=== PATIENT | female | born 1985 | race Caucasian/White ===

== ENCOUNTER 2016-09-01 20:34 | Emergency (ER) | payer OTHER ==
[2016-09-01 20:46] VITALS: TEMP 97.5
[2016-09-01] MEDS ORDERED: SODIUM CHLORIDE 0.9% 1,000 ML IV STA (21:07)
--- NOTE | 2016-09-01 21:21 | ED ---
General Adult HPI - General Chief complaint: Abdominal Pain Stated complaint: Abd pain Time Seen by Provider: 09/01/16 20:55 Source: patient, RN notes reviewed Mode of arrival: ambulatory Limitations: no limitations - History of Present Illness Initial comments: 30-year-old female presented emergency department with multiple complaints. Patient states she's had right shoulder pain for last few weeks after she fell down 3-4 stairs. Patient states she also had right shoulder pain. She states she has full range of motion but occasionally she has increased pain and states it feels like it catches. Patient denies any paresthesias. Denies any neck or head pain. Patient states she has chronic neck and back pain and was she was seen Dr. Dyllan sanchez. Patient states that last night she slipped on some ice and has had increased low back pain. She states she had an MRI her back though she does not know the results. Patient denies any bowel, bladder incontinence or retention. She states that she's had lower abdominal discomfort for last few months after having a . She states it was her third . She states that she was told that she had a large amount of scar tissue. Patient denies any dysuria, hematuria, vaginal or vaginal discharge. - Related Data Home Medications Medication Instructions Recorded Confirmed Acetaminophen Tab [Tylenol Tab] 1,000 mg PO BID PRN 09/01/16 09/01/16 Gabapentin [Neurontin] 300 mg PO TID 09/01/16 09/01/16 Ibuprofen [Motrin] 400 mg PO TID PRN 09/01/16 09/01/16 Previous Rx's Medication Instructions Recorded Hydrocodone/Acetaminophen [[facility] 1 tab PO Q6HR PRN #15 tab 09/01/16 5-325] Allergies Allergy/AdvReac Type Severity Reaction Status Date / Time Sulfa (Sulfonamide AdvReac Nausea & Verified 09/01/16 21:03 Antibiotics) Vomiting Review of Systems ROS Statement: Those systems with pertinent positive or pertinent negative responses have been documented in the HPI. ROS Other: All systems not noted in ROS Statement are negative. Past Medical History Additional Past Medical History / Comment(s): POSSIBLE MS, CHRONIC BACK PAIN, Kidney stones History of Any Multi-Drug Resistant Organisms: None Reported Past Surgical History: Appendectomy, Section Additional Past Surgical History / Comment(s): HYSTEROSCOPE, LAPARASCOPE Past Anesthesia/Blood Transfusion Reactions: No Reported Reaction Past Psychological History: Anxiety, Depression Smoking Status: Current every day smoker Past Alcohol Use History: None Reported Past Drug Use History: None Reported - Past Family History Mother Additional Family Medical History / Comment(s): kidney stones General Exam Limitations: no limitations General appearance: alert, in no apparent distress Head exam: Present: atraumatic, normocephalic, normal inspection Neck exam: Present: normal inspection, full ROM. Absent: tenderness, meningismus, lymphadenopathy Respiratory exam: Present: normal lung sounds bilaterally. Absent: respiratory distress, wheezes, rales, rhonchi, stridor Cardiovascular Exam: Present: regular rate, normal rhythm, normal heart sounds. Absent: systolic murmur, diastolic murmur, rubs, gallop, clicks GI/Abdominal exam: Present: soft, tenderness (Minimal lower abdominal tenderness ), normal bowel sounds. Absent: distended, guarding, rebound, rigid Extremities exam: Present: other (Right shoulder full range of motion there is mild tenderness over the anterior surface along the biceps tendon patient has equal strength 5/5 neurovascular intact there is some discomfort with extension) Back exam: Present: full ROM, tenderness (Minimal lumbar), paraspinal tenderness. Absent: CVA tenderness (R), CVA tenderness (L), vertebral tenderness Skin exam: Present: warm, dry, intact, normal color. Absent: rash Course Vital Signs 09/01/16 20:42 Temperature 97.5 F L Pulse Rate 87 Respiratory 18 Rate Blood Pressure 136/82 O2 Sat by Pulse 99 Oximetry Medical Decision Making - Medical Decision Making 30-year-old female presented emergency department to complaint of low back shoulder and abd pain. Patient's laboratory within normal limits. Patient appears to have urinary contaminant. Patient will have urine culture performed. Patient was given pain medications time of discharge. - Lab Data Result diagrams: 09/01/16 21:50 09/01/16 21:50 Lab Results 09/01/16 09/01/16 09/01/16 Range/Units 21:50 21:50 21:50 WBC 6.3 (3.8-10.6) k/uL RBC 4.67 (3.80-5.40) m/uL Hgb 14.2 (11.4-16.0) gm/dL Hct 43.8 (34.0-46.0) % MCV 93.7 (80.0-100.0) fL MCH 30.4 (25.0-35.0) pg MCHC 32.5 (31.0-37.0) g/dL RDW 13.9 (11.5-15.5) % Plt Count 156 (150-450) k/uL Neutrophils % 53 % Lymphocytes % 36 % Monocytes % 7 % Eosinophils % 2 % Basophils % 1 % Neutrophils # 3.3 (1.3-7.7) k/uL Lymphocytes # 2.3 (1.0-4.8) k/uL Monocytes # 0.4 (0-1.0) k/uL Eosinophils # 0.1 (0-0.7) k/uL Basophils # 0.0 (0-0.2) k/uL Sodium 144 (137-145) mmol/L Potassium 4.1 (3.5-5.1) mmol/L Chloride 105 (98-107) mmol/L Carbon Dioxide 28 (22-30) mmol/L Anion Gap 11 mmol/L BUN 19 H (7-17) mg/dL Creatinine 0.80 (0.52-1.04) mg/dL Est GFR (MDRD) Af Amer >60 (>60 ml/min/1.73 sqM) Est GFR (MDRD) Non-Af >60 (>60 ml/min/1.73 sqM) Glucose 80 (74-99) mg/dL Calcium 9.6 (8.4-10.2) mg/dL Total Bilirubin 0.9 (0.2-1.3) mg/dL AST 26 (14-36) U/L ALT 32 (9-52) U/L Alkaline Phosphatase 45 (38-126) U/L Total Protein 7.1 (6.3-8.2) g/dL Albumin 4.7 (3.5-5.0) g/dL Amylase 101 (30-110) U/L Lipase 173 (23-300) U/L Urine Color Yellow Urine Appearance Cloudy H (Clear) Urine pH 7.0 (5.0-8.0) Ur Specific [place] 1.017 (1.001-1.035) Urine Protein Trace H (Negative) Urine Glucose (UA) Negative (Negative) Urine Ketones Negative (Negative) Urine Blood Moderate H (Negative) Urine Nitrate Positive H (Negative) Urine Bilirubin Negative (Negative) Urine Urobilinogen <2.0 (<2.0) mg/dL Ur Leukocyte Esterase Moderate H (Negative) Urine RBC 5 (0-5) /hpf Urine WBC 18 H (0-5) /hpf Ur Squamous Epith Cells 22 H (0-4) /hpf Amorphous Sediment Rare H (None) /hpf Urine Bacteria Occasional H (None) /hpf Urine Mucus Rare H (None) /hpf Disposition Clinical Impression: Right shoulder pain, Chronic back pain, Abdominal pain Disposition: HOME SELF-CARE Condition: Stable Instructions: Back Pain (ED) Additional Instructions: Please return to the Emergency Department if symptoms worsen or any other concerns. Prescriptions: Hydrocodone/Acetaminophen [[facility] 5-325] 1 tab PO Q6HR PRN #15 tab PRN Reason: Pain Time of Disposition: 22:19
--- NOTE | 2016-09-01 21:40 | XR ---
EXAMINATION TYPE: XR KUB DATE OF EXAM: 09/01/2016 9:35 PM COMPARISON: 02/26/2015 HISTORY: Abdominal pain for one month TECHNIQUE: 2 views FINDINGS: Bowel gas pattern is normal. There is no sign of intestinal obstruction or pneumoperitoneum . Fecal pattern is normal. There are several calcifications over the left kidney that measure up to 5 mm. There are clips from tubal ligation. There is mild lumbar levoscoliosis. There is a faint 3 mm c alcification over lower pole right kidney. IMPRESSION: Small bilateral renal calculi. Nonacute abdomen. Calculi in the left kidney are probably increased compared to previous exams. There is improvement on the right side compared to previous exa ms. Nonacute abdomen.
--- NOTE | 2016-09-01 21:46 | XR ---
History fell down the stairs. Shoulder pain. Comparison none. Technique 3 views. FINDINGS: I see no fracture nor dislocation. Joint spaces are normal. There are no pathologic calcifications. CONCLUSION: Normal right shoulder.
--- NOTE | 2016-09-01 21:47 | XR ---
EXAMINATION TYPE: XR lumbar spine 2 or 3V DATE OF EXAM: 09/01/2016 9:42 PM COMPARISON: NONE HISTORY: Fell down the stairs. Back pain. TECHNIQUE: 3 views FINDINGS: Vertebra have normal spacing and alignment. Posterior elements are intact. There is a trans itional L5 vertebra. Sacroiliac joints are normal. There is no compression fracture. IMPRESSION: Negative lumbar spine exam.
[2016-09-01 22:04] LABS: Basophils % (A) 1 %; CH 31.2; CHCM 33.5; Eosinophils # (A) 0.1 k/uL (0-0.7); Eosinophils % (A) 2 %; HCT 43.8 % (34.0-46.0); HDW 2.53; HGB 14.2 gm/dL (11.4-16.0); Luc % (Auto) 2; Lymphocytes # (A) 2.3 k/uL (1.0-4.8); Lymphocytes % (A) 36 %; MCH 30.4 pg (25.0-35.0); MCHC 32.5 g/dL (31.0-37.0); MCV 93.7 fL (80.0-100.0); Mean Platelet Volume 9.9; Monocytes # (A) 0.4 k/uL (0-1.0); Monocytes % (A) 7 %; Neutrophils # (A) 3.3 k/uL (1.3-7.7); Neutrophils % (A) 53 %; RBC 4.67 m/uL (3.80-5.40); RDW 13.9 % (11.5-15.5); WBC 6.3 k/uL (3.8-10.6); WBC (Perox) 6.66
[2016-09-01 22:11] LABS: ALT 32 U/L (9-52); AST 26 U/L (14-36); Alkaline Phosphatase 45 U/L (38-126); Amylase 101 U/L (30-110); Anion Gap 11 mmol/L; Blood Urea Nitrogen 19 mg/dL (7-17); Calcium 9.6 mg/dL (8.4-10.2); Carbon Dioxide 28 mmol/L (22-30); Chloride 105 mmol/L (98-107); Glucose 80 mg/dL (74-99); Non-African American GFR(MDRD) >60 (>60 ml/min/1.73 sqM); Potassium 4.1 mmol/L (3.5-5.1); Sodium 144 mmol/L (137-145); Total Bilirubin 0.9 mg/dL (0.2-1.3); Total Protein 7.1 g/dL (6.3-8.2)
[2016-09-01 22:13] LABS: Amorphous Sediment,Urine Rare /hpf; Appearance,Urine Cloudy (Clear); Bacteria,Urine Occasional /hpf; Bilirubin,Urine Negative (Negative); Glucose,Urine (UA) Negative (Negative); Ketones,Urine Negative (Negative); Leukocyte Esterase,Urine Moderate (Negative); Mucus,Urine Rare /hpf; Nitrite,Urine Positive (Negative); Particle Count 98101; Protein,Urine Trace (Negative); RBC,Urine 5 /hpf (0-5); Specific Gravity,Urine 1.017 (1.001-1.035); Squamous Epithelial Cell,Urine 22 /hpf (0-4); UA Billing (MACRO vs. MICRO) MICRO; Urobilinogen,Urine <2.0 mg/dL (<2.0); WBC,Urine 18 /hpf (0-5)
[2016-09-01 22:29] VITALS: BP 128/74; PULSE 70; RESP 12
== END 2016-09-01 22:28 | disposition home or self-care (01) ==
LOC: EC 20:34
DX: M25.511 Pain in right shoulder (principal); W10.9XXA Fall (on) (from) unspecified stairs and steps, initial encounter; M54.9 Dorsalgia, unspecified; G89.29 Other chronic pain; R10.9 Unspecified abdominal pain; Z98.890 Other specified postprocedural states; N20.0 Calculus of kidney; M54.2 Cervicalgia; Z79.899 Other long term (current) drug therapy; F17.200 Nicotine dependence, unspecified, uncomplicated; Z88.2 Allergy status to sulfonamides
CPT/HCPCS: 36415; 72100; 74000; 80053; 81001; 82150; 83690; 85025; 87077; 87086; 87186; 99284

== ENCOUNTER 2016-10-08 03:20 | Emergency (ER) | payer OTHER ==
[2016-10-08 03:27] VITALS: RESP 18
--- NOTE | 2016-10-08 04:05 | ED ---
Abdominal Pain HPI - General Chief Complaint: Abdominal Pain Stated Complaint: Female Time Seen by Provider: 10/08/16 03:30 Source: patient Mode of arrival: ambulatory Limitations: no limitations - History of Present Illness Initial Comments: This patient is a 31-year-old woman who presents to be evaluated for what she suspects his urinary tract infection. She states this is similar to previous urinary tract infection she has had. She states over the past couple of days she is developing some suprapubic pain which is mainly pressure and burning, worse with urination. The pain is moderate in intensity. She is also having darker urine with which she is describing as a foul odor. MD Complaint: abdominal pain Onset/Timin -: days(s) Location: suprapubic Radiation: none Severity: moderate Quality: burning, other (Pressure) Consistency: constant Improves With: nothing Worsens With: other (Urination) Associated Symptoms: denies other symptoms - Related Data Home Medications Medication Instructions Recorded Confirmed Gabapentin [Neurontin] 300 mg PO TID 09/01/16 10/08/16 Previous Rx's Medication Instructions Recorded Levofloxacin [Levaquin] 500 mg PO DAILY #7 tab 10/08/16 Allergies Allergy/AdvReac Type Severity Reaction Status Date / Time Sulfa (Sulfonamide AdvReac Nausea & Verified 09/01/16 21:03 Antibiotics) Vomiting Review of Systems ROS Statement: Those systems with pertinent positive or pertinent negative responses have been documented in the HPI. ROS Other: All systems not noted in ROS Statement are negative. Constitutional: Denies: fever, chills Respiratory: Denies: cough, dyspnea Cardiovascular: Denies: chest pain, palpitations, edema Gastrointestinal: Reports: as per HPI, abdominal pain. Denies: vomiting, diarrhea, constipation Genitourinary: Reports: dysuria, frequency. Denies: hematuria, discharge, abnormal menses Musculoskeletal: Denies: back pain Skin: Denies: rash Neurological: Denies: headache, weakness Past Medical History Additional Past Medical History / Comment(s): POSSIBLE MS, CHRONIC BACK PAIN, Kidney stones History of Any Multi-Drug Resistant Organisms: None Reported Past Surgical History: Appendectomy, Section, Tubal Ligation Additional Past Surgical History / Comment(s): HYSTEROSCOPE, LAPARASCOPE Past Anesthesia/Blood Transfusion Reactions: No Reported Reaction Past Psychological History: Anxiety, Depression Smoking Status: Current every day smoker Past Alcohol Use History: None Reported Past Drug Use History: None Reported - Past Family History Mother Additional Family Medical History / Comment(s): kidney stones General Exam Limitations: no limitations General appearance: alert, in no apparent distress Head exam: Present: atraumatic, normocephalic Eye exam: Present: normal appearance. Absent: scleral icterus, conjunctival injection Respiratory exam: Present: normal lung sounds bilaterally. Absent: respiratory distress, wheezes, rales, rhonchi, stridor Cardiovascular Exam: Present: regular rate, normal rhythm, normal heart sounds. Absent: systolic murmur, diastolic murmur, rubs, gallop GI/Abdominal exam: Present: soft, tenderness (There is mild suprapubic discomfort no rebound or guarding), normal bowel sounds. Absent: distended, guarding, rebound, rigid, mass, pulsatile mass, hernia Extremities exam: Present: normal inspection, normal capillary refill. Absent: pedal edema, calf tenderness Back exam: Present: normal inspection. Absent: CVA tenderness (R), CVA tenderness (L) Neurological exam: Present: alert Skin exam: Present: warm, dry, intact, normal color. Absent: rash Course Vital Signs 10/08/16 03:24 Temperature 97.2 F L Pulse Rate 82 Respiratory 18 Rate Blood Pressure 114/86 O2 Sat by Pulse 100 Oximetry Medical Decision Making - Lab Data Lab Results 10/08/16 10/08/16 Range/Units 03:54 03:54 Urine Color Yellow Urine Appearance Cloudy H (Clear) Urine pH 7.0 (5.0-8.0) Ur Specific [place] 1.014 (1.001-1.035) Urine Protein 1+ H (Negative) Urine Glucose (UA) Negative (Negative) Urine Ketones Negative (Negative) Urine Blood Moderate H (Negative) Urine Nitrate Negative (Negative) Urine Bilirubin Negative (Negative) Urine Urobilinogen <2.0 (<2.0) mg/dL Ur Leukocyte Esterase Large H (Negative) Urine RBC 99 H (0-5) /hpf Urine WBC >182 H (0-5) /hpf Urine WBC Clumps Few H (None) /hpf Ur Squamous Epith Cells 4 (0-4) /hpf Urine HCG, Qual Not Detected (Not Detectd) Disposition Clinical Impression: Urinary tract infection Disposition: HOME SELF-CARE Condition: Fair Instructions: Urinary Tract Infection in Women (ED) Prescriptions: Levofloxacin [Levaquin] 500 mg PO DAILY #7 tab Referrals: Jeremias Art MD [Primary Care Provider] - 1-2 days
[2016-10-08 04:25] LABS: Appearance,Urine Cloudy (Clear); Bilirubin,Urine Negative (Negative); Glucose,Urine (UA) Negative (Negative); Ketones,Urine Negative (Negative); Leukocyte Esterase,Urine Large (Negative); Nitrite,Urine Negative (Negative); Particle Count 10834; Protein,Urine 1+ (Negative); RBC,Urine 99 /hpf (0-5); Specific Gravity,Urine 1.014 (1.001-1.035); Squamous Epithelial Cell,Urine 4 /hpf (0-4); UA Billing (MACRO vs. MICRO) MICRO; Urobilinogen,Urine <2.0 mg/dL (<2.0); WBC,Urine >182 /hpf (0-5)
[2016-10-08] MEDS ORDERED: LEVOFLOXACIN 500 MG TAB PO STA (04:45)
[2016-10-08] MEDS ORDERED: ONDANSETRON ODT 4 MG TAB PO STA (05:00)
[2016-10-08] MEDS ORDERED: HYDROcodone/APAP 5-325MG 1 EACH TAB PO STA (05:01)
[2016-10-08 05:56] VITALS: BP 137/86; PULSE 90; TEMP 97.7
== END 2016-10-08 05:08 | disposition home or self-care (01) ==
LOC: EC 03:20
DX: N39.0 Urinary tract infection, site not specified (principal); M54.9 Dorsalgia, unspecified; G89.29 Other chronic pain; F17.200 Nicotine dependence, unspecified, uncomplicated; Z88.2 Allergy status to sulfonamides; Z79.899 Other long term (current) drug therapy; Z87.442 Personal history of urinary calculi; Z87.440 Personal history of urinary (tract) infections
CPT/HCPCS: 81001; 81025; 99284

== ENCOUNTER 2016-11-09 15:35 | Emergency (ER) | payer OTHER ==
[2016-11-09 17:03] VITALS: BP 118/88; PULSE 88; RESP 17; TEMP 97.4
--- NOTE | 2016-11-09 17:12 | ED ---
Lower Extremity Injury HPI - General Chief Complaint: Extremity Injury, Lower Stated Complaint: Leg Pain/Fall on floor Time Seen by Provider: 11/09/16 16:17 Source: patient, RN notes reviewed Mode of arrival: ambulatory Limitations: no limitations - History of Present Illness Initial Comments: 31-year-old female presents to emergency room chief complaint of right leg pain. Patient states she is walking on the stairs she tripped. Patient now has pain to the right lower leg. Patient has tenderness and swelling. Patient is able to ambulate heart is with pain. Patient states she doesn't have any other injuries from the incident. Patient denies any lightheadedness or dizziness from the incident. - Related Data Home Medications Medication Instructions Recorded Confirmed Gabapentin [Neurontin] 300 mg PO TID 09/01/16 10/08/16 Previous Rx's Medication Instructions Recorded Levofloxacin [Levaquin] 500 mg PO DAILY #7 tab 10/08/16 Allergies Allergy/AdvReac Type Severity Reaction Status Date / Time Sulfa (Sulfonamide AdvReac Nausea & Verified 09/01/16 21:03 Antibiotics) Vomiting Review of Systems ROS Statement: Those systems with pertinent positive or pertinent negative responses have been documented in the HPI. ROS Other: All systems not noted in ROS Statement are negative. Past Medical History Additional Past Medical History / Comment(s): POSSIBLE MS, CHRONIC BACK PAIN, Kidney stones History of Any Multi-Drug Resistant Organisms: None Reported Past Surgical History: Appendectomy, Section, Tubal Ligation Additional Past Surgical History / Comment(s): HYSTEROSCOPE, LAPARASCOPE Past Anesthesia/Blood Transfusion Reactions: No Reported Reaction Past Psychological History: Anxiety, Depression Smoking Status: Current every day smoker Past Alcohol Use History: None Reported Past Drug Use History: None Reported - Past Family History Mother Additional Family Medical History / Comment(s): kidney stones General Exam - General Exam Comments Initial Comments: General: The patient is awake and alert, in no distress, and does not appear acutely ill. Neck: The neck is supple, there is no tenderness. Cardiovascular: There is a regular rate and rhythm. No murmur, rub or gallop is appreciated. Respiratory: Lungs are clear to auscultation, respirations are non-labored, breath sounds are equal. No wheezes, stridor, rales, or rhonchi. Musculoskeletal: Sensation intact with 2+ pulses to the Right lower extremity. Full range of motion of right knee and right ankle. Patient does have some tenderness patient on the right lateral aspect of the andrade with associated ecchymosis noted. Neurological: CN II-XII intact, There are no obvious motor or sensory deficits. Coordination appears grossly intact. Speech is normal. Skin: Skin is warm and dry and no rashes or lesions are noted. Psychiatric: Normal mood and affect. Limitations: no limitations Course Vital Signs 11/09/16 16:59 Temperature 97.4 F L Pulse Rate 88 Respiratory 17 Rate Blood Pressure 118/88 O2 Sat by Pulse 98 Oximetry Medical Decision Making - Medical Decision Making 31-year-old female presents emergency 5 chief complaint of right calf pain. At this time patient underwent an x-ray that does not show any acute fracture. Discussed patient's right leg contusion. We discussed ice Motrin Tylenol. We discussed return parameters. Systolic patient's questions. She stated that she understood a chief complaint. This time she will be discharged home. - Radiology Data Radiology results: report reviewed, image reviewed Disposition Clinical Impression: Contusion of right leg Disposition: HOME SELF-CARE Condition: Stable Instructions: Contusion in Adults (ED) Additional Instructions: Please use medication as discussed. Please follow up with family doctor if symptoms have not improved over the next two days. Please return to the emergency room if your symptoms increase or worsen or for any other concerns. Referrals: Jeremias Art MD [Primary Care Provider] - 1-2 days
--- NOTE | 2016-11-09 17:31 | XR ---
EXAMINATION TYPE: XR tibia fibula RT DATE OF EXAM: 11/09/2016 5:22 PM COMPARISON: NONE HISTORY: Pain after injury TECHNIQUE: 3 views FINDINGS: I see no fracture nor dislocation. Knee joint and ankle joint appear intact. There are no p athologic calcifications. IMPRESSION: Negative right tibia and fibula exam.
== END 2016-11-09 17:34 ==
LOC: EC 15:35
DX: S80.11XA Contusion of right lower leg, initial encounter (principal); F17.200 Nicotine dependence, unspecified, uncomplicated; Z79.899 Other long term (current) drug therapy; Z88.2 Allergy status to sulfonamides; W10.9XXA Fall (on) (from) unspecified stairs and steps, initial encounter; Y92.009 Unspecified place in unspecified non-institutional (private) residence as the place of occurrence of the external cause
CPT/HCPCS: 99283

== ENCOUNTER 2017-03-24 16:44 | Emergency (ER) | payer OTHER ==
[2017-03-24 17:34] LABS: Basophils % (A) 0 %; CH 31.7; CHCM 33.2; Eosinophils # (A) 0.1 k/uL (0-0.7); Eosinophils % (A) 1 %; HCT 38.9 % (34.0-46.0); HDW 2.52; HGB 12.8 gm/dL (11.4-16.0); Luc # (Auto) 0.14; Luc % (Auto) 2; Lymphocytes # (A) 1.6 k/uL (1.0-4.8); Lymphocytes % (A) 20 %; MCH 31.6 pg (25.0-35.0); MCV 95.9 fL (80.0-100.0); Mean Platelet Volume 10.6; Monocytes # (A) 0.4 k/uL (0-1.0); Monocytes % (A) 6 %; Neutrophils # (A) 5.5 k/uL (1.3-7.7); Neutrophils % (A) 71 %; RBC 4.06 m/uL (3.80-5.40); RDW 14.1 % (11.5-15.5); WBC 7.7 k/uL (3.8-10.6); WBC (Perox) 7.81
[2017-03-24 17:51] LABS: ALT 23 U/L (9-52); AST 16 U/L (14-36); Alcohol <10 mg/dL; Alkaline Phosphatase 66 U/L (38-126); Anion Gap 17 mmol/L; Blood Urea Nitrogen 16 mg/dL (7-17); Calcium 9.3 mg/dL (8.4-10.2); Carbon Dioxide 17 mmol/L (22-30); Chloride 115 mmol/L (98-107); Glucose 84 mg/dL (74-99); Magnesium 1.9 mg/dL (1.6-2.3); Non-African American GFR(MDRD) >60 (>60 ml/min/1.73 sqM); Potassium 3.7 mmol/L (3.5-5.1); Prothrombin Time 10.4 sec (9.0-12.0); Salicylate <1.0 mg/dL; Sodium 149 mmol/L (137-145); Total Bilirubin 0.3 mg/dL (0.2-1.3); Total Protein 7.1 g/dL (6.3-8.2)
[2017-03-24 17:54] LABS: Creatine Kinase 60 U/L (30-135)
[2017-03-24 18:07] LABS: Creatine Kinase MB 0.6 ng/mL (0.0-2.4); Troponin I <0.012 ng/mL (0.000-0.034)
[2017-03-24] MEDS ORDERED: SODIUM CHLORIDE 0.9% 1,000 ML IV STA (18:10)
--- NOTE | 2017-03-24 18:15 | ED ---
SOB HPI - General Source: patient, police, RN notes reviewed Mode of arrival: EMS Limitations: no limitations - History of Present Illness MD Complaint: shortness of breath, anxiety <Rubio Torres - Last Filed: 03/24/17 19:30> <Shayne Scruggs - Last Filed: 03/25/17 00:04> - General Chief Complaint: Shortness of Breath Stated Complaint: SOB Time Seen by Provider: 03/24/17 16:50 - History of Present Illness Initial Comments: This is a 31-year-old female with history of anxiety who presents with complains of shortness of breath today also she states she just can't take it anymore she is under a lot of stress she had chest pain. 2 g by EMS and given updraft in route. She states she recently was diagnosed with pneumonia and was on antibiotics and steroids she is almost all of the antibiotics. She states she was seen at [facility] 3-4 days ago and diagnosed with this. She also states she took 6 600 mg Motrin earlier today for the pain. She was brought in by EMS with police a petition was filled out by police. (Rubio Torres ) - Related Data Home Medications Medication Instructions Recorded Confirmed Albuterol Inhaler [Ventolin Hfa 1 - 2 puff INHALATION RT-Q6H PRN 03/24/17 Inhaler] Azithromycin [Zithromax Z-pack] See Taper PO DAILY 03/24/17 03/24/17 Baclofen 10 mg PO BID PRN 03/24/17 03/24/17 Fluticasone Nasal [place] [Flonase 1 spr EA NOSTRIL BID 03/24/17 03/24/17 Nasal [place]] Hydrocodone/Acetaminophen [[employer] 1 tab PO BID PRN 03/24/17 03/24/17 10-325] Ibuprofen [Motrin] 600 mg PO TID PRN 03/24/17 03/24/17 predniSONE See Taper PO DAILY 03/24/17 03/24/17 Allergies Allergy/AdvReac Type Severity Reaction Status Date / Time Sulfa (Sulfonamide AdvReac Nausea & Verified 03/24/17 17:12 Antibiotics) Vomiting Review of Systems ROS Other: All systems not noted in ROS Statement are negative. <Rubio Torres - Last Filed: 03/24/17 19:30> ROS Other: All systems not noted in ROS Statement are negative. <Shayne Scruggs - Last Filed: 03/25/17 00:04> ROS Statement: Those systems with pertinent positive or pertinent negative responses have been documented in the HPI. Past Medical History Additional Past Medical History / Comment(s): POSSIBLE MS, CHRONIC BACK PAIN, Kidney stones History of Any Multi-Drug Resistant Organisms: None Reported Past Surgical History: Appendectomy, Section, Tubal Ligation Additional Past Surgical History / Comment(s): HYSTEROSCOPE, LAPARASCOPE Past Anesthesia/Blood Transfusion Reactions: No Reported Reaction Past Psychological History: Anxiety, Depression Smoking Status: Current every day smoker Past Alcohol Use History: None Reported Past Drug Use History: None Reported - Past Family History Mother Additional Family Medical History / Comment(s): kidney stones <Rubio Torres - Last Filed: 03/24/17 19:30> General Exam Limitations: no limitations General appearance: alert, anxious, in distress Head exam: Present: atraumatic, normocephalic, normal inspection Eye exam: Present: normal appearance, PERRL, EOMI. Absent: scleral icterus, conjunctival injection, periorbital swelling ENT exam: Present: normal exam, mucous membranes moist Neck exam: Present: normal inspection. Absent: tenderness, meningismus, lymphadenopathy Respiratory exam: Present: normal lung sounds bilaterally. Absent: respiratory distress, wheezes, rales, rhonchi, stridor Cardiovascular Exam: Present: normal rhythm, tachycardia, normal heart sounds. Absent: systolic murmur, diastolic murmur, rubs, gallop, clicks GI/Abdominal exam: Present: soft, normal bowel sounds. Absent: distended, tenderness, guarding, rebound, rigid Extremities exam: Present: normal inspection, full ROM, normal capillary refill. Absent: tenderness, pedal edema, joint swelling, calf tenderness Back exam: Present: normal inspection Neurological exam: Present: alert, oriented X3, CN II-XII intact Psychiatric exam: Present: depressed, anxious Skin exam: Present: warm, dry, intact, normal color. Absent: rash <Rubio Torres - Last Filed: 03/24/17 19:30> <Shayne Scruggs - Last Filed: 03/25/17 00:04> - General Exam Comments Initial Comments: This is a well-developed well-nourished awake alert anxious appearing female she is tearful (Rubio Torres) Course <Rubio Torres - Last Filed: 03/24/17 19:30> <Shayne Scruggs - Last Filed: 03/25/17 00:04> Vital Signs 03/24/17 03/24/17 03/24/17 17:04 17:32 18:38 Temperature 97.5 F L Pulse Rate 124 H 92 Respiratory 22 22 18 Rate Blood Pressure 147/99 124/89 O2 Sat by Pulse 97 97 Oximetry 03/24/17 20:17 Temperature Pulse Rate 70 Respiratory 16 Rate Blood Pressure 122/67 O2 Sat by Pulse 98 Oximetry - Reevaluation(s) Reevaluation #1: 03/24/17 19:30 The patient continues rest comfortably she will get a repeat Tylenol draw at 20 1:15 PM this evening. (Rubio Torres) Medical Decision Making - Lab Data Result diagrams: 03/24/17 17:16 03/24/17 17:16 <Rubio Torres - Last Filed: 03/24/17 19:30> - Lab Data Result diagrams: 03/24/17 17:16 03/24/17 17:16 <Shayne Scruggs - Last Filed: 03/25/17 00:04> - Medical Decision Making Plan I female at ER for evaluation regarding tearful episode, patient was originally but is seen and evaluated by psych, patient will be discharged home ( Shayne Scruggs) - Lab Data Lab Results 03/24/17 03/24/17 03/24/17 Range/Units 17:16 17:16 17:16 WBC 7.7 (3.8-10.6) k/uL RBC 4.06 (3.80-5.40) m/uL Hgb 12.8 (11.4-16.0) gm/dL Hct 38.9 (34.0-46.0) % MCV 95.9 (80.0-100.0) fL MCH 31.6 (25.0-35.0) pg MCHC 33.0 (31.0-37.0) g/dL RDW 14.1 (11.5-15.5) % Plt Count 178 (150-450) k/uL Neutrophils % 71 % Lymphocytes % 20 % Monocytes % 6 % Eosinophils % 1 % Basophils % 0 % Neutrophils # 5.5 (1.3-7.7) k/uL Lymphocytes # 1.6 (1.0-4.8) k/uL Monocytes # 0.4 (0-1.0) k/uL Eosinophils # 0.1 (0-0.7) k/uL Basophils # 0.0 (0-0.2) k/uL PT (9.0-12.0) sec INR (<1.2) APTT (22.0-30.0) sec D-Dimer (<0.60) mg/L FEU Sodium 149 H (137-145) mmol/L Potassium 3.7 (3.5-5.1) mmol/L Chloride 115 H (98-107) mmol/L Carbon Dioxide 17 L (22-30) mmol/L Anion Gap 17 mmol/L BUN 16 (7-17) mg/dL Creatinine 0.60 (0.52-1.04) mg/dL Est GFR (MDRD) Af Amer >60 (>60 ml/min/1.73 sqM) Est GFR (MDRD) Non-Af >60 (>60 ml/min/1.73 sqM) Glucose 84 (74-99) mg/dL Calcium 9.3 (8.4-10.2) mg/dL Magnesium 1.9 (1.6-2.3) mg/dL Total Bilirubin 0.3 (0.2-1.3) mg/dL AST 16 (14-36) U/L ALT 23 (9-52) U/L Alkaline Phosphatase 66 (38-126) U/L Total Creatine Kinase 60 (30-135) U/L CK-MB (CK-2) 0.6 (0.0-2.4) ng/mL CK-MB (CK-2) Rel Index 1.0 Troponin I <0.012 (0.000-0.034) ng/mL NT-Pro-B Natriuret Pep pg/mL Total Protein 7.1 (6.3-8.2) g/dL Albumin 4.1 (3.5-5.0) g/dL Salicylates <1.0 mg/dL Urine Opiates Screen (NotDetected) Ur Oxycodone Screen (NotDetected) Urine Methadone Screen (NotDetected) Ur Propoxyphene Screen (NotDetected) Acetaminophen 69.0 H* ug/mL Ur Barbiturates Screen (NotDetected) U Tricyclic Antidepress (NotDetected) Ur Phencyclidine Scrn (NotDetected) Ur Amphetamines Screen (NotDetected) U Methamphetamines Scrn (NotDetected) U Benzodiazepines Scrn (NotDetected) Urine Cocaine Screen (NotDetected) U Marijuana (THC) Screen (NotDetected) Serum Alcohol <10 mg/dL 03/24/17 03/24/17 03/24/17 Range/Units 17:16 17:16 17:16 WBC (3.8-10.6) k/uL RBC (3.80-5.40) m/uL Hgb (11.4-16.0) gm/dL Hct (34.0-46.0) % MCV (80.0-100.0) fL MCH (25.0-35.0) pg MCHC (31.0-37.0) g/dL RDW (11.5-15.5) % Plt Count (150-450) k/uL Neutrophils % % Lymphocytes % % Monocytes % % Eosinophils % % Basophils % % Neutrophils # (1.3-7.7) k/uL Lymphocytes # (1.0-4.8) k/uL Monocytes # (0-1.0) k/uL Eosinophils # (0-0.7) k/uL Basophils # (0-0.2) k/uL PT 10.4 (9.0-12.0) sec INR 1.0 (<1.2) APTT 23.0 (22.0-30.0) sec D-Dimer 0.39 (<0.60) mg/L FEU Sodium (137-145) mmol/L Potassium (3.5-5.1) mmol/L Chloride (98-107) mmol/L Carbon Dioxide (22-30) mmol/L Anion Gap mmol/L BUN (7-17) mg/dL Creatinine (0.52-1.04) mg/dL Est GFR (MDRD) Af Amer (>60 ml/min/1.73 sqM) Est GFR (MDRD) Non-Af (>60 ml/min/1.73 sqM) Glucose (74-99) mg/dL Calcium (8.4-10.2) mg/dL Magnesium (1.6-2.3) mg/dL Total Bilirubin (0.2-1.3) mg/dL AST (14-36) U/L ALT (9-52) U/L Alkaline Phosphatase (38-126) U/L Total Creatine Kinase (30-135) U/L CK-MB (CK-2) (0.0-2.4) ng/mL CK-MB (CK-2) Rel Index Troponin I (0.000-0.034) ng/mL NT-Pro-B Natriuret Pep 371 pg/mL Total Protein (6.3-8.2) g/dL Albumin (3.5-5.0) g/dL Salicylates mg/dL Urine Opiates Screen Detected H (NotDetected) Ur Oxycodone Screen Detected H (NotDetected) Urine Methadone Screen Not Detected (NotDetected) Ur Propoxyphene Screen Not Detected (NotDetected) Acetaminophen ug/mL Ur Barbiturates Screen Not Detected (NotDetected) U Tricyclic Antidepress Not Detected (NotDetected) Ur Phencyclidine Scrn Not Detected (NotDetected) Ur Amphetamines Screen Not Detected (NotDetected) U Methamphetamines Scrn Not Detected (NotDetected) U Benzodiazepines Scrn Not Detected (NotDetected) Urine Cocaine Screen Not Detected (NotDetected) U Marijuana (THC) Screen Detected H (NotDetected) Serum Alcohol mg/dL 03/24/17 Range/Units 21:05 WBC (3.8-10.6) k/uL RBC (3.80-5.40) m/uL Hgb (11.4-16.0) gm/dL Hct (34.0-46.0) % MCV (80.0-100.0) fL MCH (25.0-35.0) pg MCHC (31.0-37.0) g/dL RDW (11.5-15.5) % Plt Count (150-450) k/uL Neutrophils % % Lymphocytes % % Monocytes % % Eosinophils % % Basophils % % Neutrophils # (1.3-7.7) k/uL Lymphocytes # (1.0-4.8) k/uL Monocytes # (0-1.0) k/uL Eosinophils # (0-0.7) k/uL Basophils # (0-0.2) k/uL PT (9.0-12.0) sec INR (<1.2) APTT (22.0-30.0) sec D-Dimer (<0.60) mg/L FEU Sodium (137-145) mmol/L Potassium (3.5-5.1) mmol/L Chloride (98-107) mmol/L Carbon Dioxide (22-30) mmol/L Anion Gap mmol/L BUN (7-17) mg/dL Creatinine (0.52-1.04) mg/dL Est GFR (MDRD) Af Amer (>60 ml/min/1.73 sqM) Est GFR (MDRD) Non-Af (>60 ml/min/1.73 sqM) Glucose (74-99) mg/dL Calcium (8.4-10.2) mg/dL Magnesium (1.6-2.3) mg/dL Total Bilirubin (0.2-1.3) mg/dL AST (14-36) U/L ALT (9-52) U/L Alkaline Phosphatase (38-126) U/L Total Creatine Kinase (30-135) U/L CK-MB (CK-2) (0.0-2.4) ng/mL CK-MB (CK-2) Rel Index Troponin I (0.000-0.034) ng/mL NT-Pro-B Natriuret Pep pg/mL Total Protein (6.3-8.2) g/dL Albumin (3.5-5.0) g/dL Salicylates mg/dL Urine Opiates Screen (NotDetected) Ur Oxycodone Screen (NotDetected) Urine Methadone Screen (NotDetected) Ur Propoxyphene Screen (NotDetected) Acetaminophen 53.6 H* ug/mL Ur Barbiturates Screen (NotDetected) U Tricyclic Antidepress (NotDetected) Ur Phencyclidine Scrn (NotDetected) Ur Amphetamines Screen (NotDetected) U Methamphetamines Scrn (NotDetected) U Benzodiazepines Scrn (NotDetected) Urine Cocaine Screen (NotDetected) U Marijuana (THC) Screen (NotDetected) Serum Alcohol mg/dL Disposition <Rubio Torres - Last Filed: 03/24/17 19:30> <Shayne Scruggs - Last Filed: 03/25/17 00:04> Clinical Impression: Substance abuse Disposition: HOME SELF-CARE Condition: Good Instructions: Depression (ED) Referrals: Jeremias Art MD [Primary Care Provider] - 1-2 days
--- NOTE | 2017-03-24 20:11 | XR ---
EXAMINATION TYPE: XR chest 2V DATE OF EXAM: 03/24/2017 COMPARISON: Chest x-ray October 26, 2010. HISTORY: Cough and shortness of breath. TECHNIQUE: Frontal and lateral views of the chest are obtained. FINDINGS: There is suspicious right medial basilar opacity likely anteriorly or in the middle lobe o n lateral view though less well-seen. Left lung is clear. No pleural effusion or pneumothorax is seen bilaterally. The cardiac silhouette size is within normal limits. The osseous structures are intac t. IMPRESSION: Suspicious new right medial basilar likely middle lobe infiltrate.
[2017-03-25 00:26] VITALS: BP 124/89; PULSE 64; RESP 18; TEMP 98.8
== END 2017-03-25 00:24 | disposition home or self-care (01) ==
LOC: EC 16:44
DX: F19.10 Other psychoactive substance abuse, uncomplicated (principal); R06.02 Shortness of breath; F41.9 Anxiety disorder, unspecified; F32.9 Major depressive disorder, single episode, unspecified; F17.200 Nicotine dependence, unspecified, uncomplicated; Z79.51 Long term (current) use of inhaled steroids; Z79.52 Long term (current) use of systemic steroids; Z88.2 Allergy status to sulfonamides
CPT/HCPCS: 36415; 71020; 80053; 80306; 80320; 82075; 82550; 82553; 83520; 83735; 83880; 84484; 85025; 85379; 85610; 85730; 93005; 96360; 96361; 99285